=== PATIENT | female | born 1965 | race Two or more races ===

== ENCOUNTER 2017-01-04 21:44 | Emergency (ER) | payer SELFPAY ==
[~2017-01-04] VITALS: Ht 157.5 cm; Wt 90.7 kg
[~2017-01-04 21:44] MED LIST: FLUT9.9S NS; MAGN296S PO; METH-37 PO; ONDA4TAB10 SL; TRAM-29 PO
[2017-01-04 22:01] VITALS: BP 160/89
--- NOTE | 2017-01-04 22:18 | PHYS DOC ---
Past Medical History Past Medical History: Asthma, Hypertension Additional Past Medical Histor: htn "with childbirth" Past Surgical History: No Surgical History, Alcohol Use: None Drug Use: None Adult General Chief Complaint Chief Complaint: SKIN RASH/ABSCESS HPI HPI Patient is a 51 year old female who presents with sharp shooting left mid axillary pain that wraps around to her back to her breast. Patient states she thinks her bra tag has been poking her or spider bit her in this area. There is a small lesion that is not vesicular in nature at the area of maximum pain. Patient denies any cardiac history. Patient denies any fevers or chills. Patient has no other complaints. Pertinent physical exam findings: Tender to palpation of the left chest wall midaxillary with a small lesion possibly a skin tag with maximal tenderness ED course: 2199: EKG, two-view chest x-ray 2229: Patient complained of a headache and wanted pain medication. Patient described 60 mg of Toradol IM. Pertinent results: EKG: NSR 86 no STEMI inverted T waves in anterior leads with no previous EKG to compare to Chest x-ray two-view [facility] ED medical decision making: After reviewing the chart, just complaint, history of present illness, past medical history, physical exam, EKG, chest x-ray I do not believe the patient have an acute MS, PE (PERC neg), and low suspicion for acute thoracic aortic dissection. I believe the patient has left sided chest wall pain that could be early shingles or from a possible spider bite as the patient stated. The patient does not think this is cardiac in nature. Patient does not want to be admitted for further cardiac workup. Patient is stable for discharge. Recommend short-term follow-up PCP in 1-2 days. Additional verbal discharge instructions were provided to the patient and that if symptoms get worse or any new symptoms arise that are worrisome to the patient he is to return to emergency room immediately. Review of Systems Review of Systems Constitutional: Denies fever or chills [] Eyes: Denies change in visual acuity, redness, or eye pain [] HENT: Denies nasal congestion or sore throat [] Respiratory: Denies cough or shortness of breath [] Cardiovascular: Left chest wall pain GI: Denies abdominal pain, nausea, vomiting, bloody stools or diarrhea [] : Denies dysuria or hematuria [] Musculoskeletal: Denies back pain or joint pain [] Integument: Denies rash or skin lesions [] Current Medications Current Medications Current Medications Medications (Trade) Dose Ordered Sig/Grabiel Start Time Stop Time Status Last Admin Dose Admin Ketorolac Tromethamine (Toradol Im) 60 mg 1X ONCE 01/04/17 23:00 01/04/17 23:01 DC 01/04/17 22:37 60 MG Allergies Allergies Allergies Coded Allergies Type Severity Reaction Last Updated Verified No Known Drug Allergies 04/11/14 No Physical Exam Physical Exam Constitutional: Well developed, well nourished, no acute distress, non-toxic appearance. [] HENT: Normocephalic, atraumatic, bilateral external ears normal, oropharynx moist, no oral exudates, nose normal. [] Eyes: PERRLA, EOMI, conjunctiva normal, no discharge. [] Neck: Normal range of motion, no tenderness, supple, no stridor. [] Cardiovascular:Heart rate regular rhythm, no murmur, positive tender to palpation left midaxillary chest wall for small skin tag lesion nonvesicular [] Lungs & Thorax: Bilateral breath sounds clear to auscultation [] Abdomen: Bowel sounds normal, soft, no tenderness, no masses, no pulsatile masses. [] Skin: Warm, dry, no erythema, no rash. [] Back: No tenderness, no CVA tenderness. [] Extremities: No tenderness, no cyanosis, no clubbing, ROM intact, no edema. [] Neurologic: Alert and oriented X 3, normal motor function, normal sensory function, no focal deficits noted. [] Psychologic: Affect normal, judgement normal, mood normal. [] Current Patient Data Vital Signs Vital Signs Date Time Temp Pulse Resp B/P (MAP) Pulse Ox O2 Delivery O2 Flow Rate FiO2 01/04/17 22:01 98.8 94 18 97 Room Air 98.8 EKG EKG 2205:EKG: NSR 86 no STEMI inverted T waves in anterior leads with no previous EKG to compare to[] Radiology/Procedures Radiology/Procedures Two-view chest x-ray NAD [] Course & Med Decision Making Course & Med Decision Making Pertinent Labs and Imaging studies reviewed. (See chart for details) [] Dragon Disclaimer Dragon Disclaimer This electronic medical record was generated, in whole or in part, using a voice recognition dictation system. Departure Departure Impression: Primary Impression: Chest wall pain Additional Impression: Chest pain Disposition: HOME, SELF-CARE Condition: IMPROVED Referrals: NO PCP (PCP) Patient Instructions: Chest Pain (Nonspecific), Chest Wall Pain, [id number] Scripts Ibuprofen (MOTRIN IB) 200 Mg Tablet 800 MG PO Q8HRS for 2 Days, #24 TAB Prov: ANA MORILLO DO 01/04/17 Problem Qualifiers Additional Impression: Chest pain Chest pain type: unspecified Qualified Codes: R07.9 - Chest pain, unspecified ANA MORILLO DO January 04, 2017 22:17
[2017-01-04] MEDS ORDERED: KETOROLAC TROMETHAMINE 60 MG/2 ML INJ. IM ONE (23:00)
[2017-01-04] MEDS ORDERED: IBUP200T43 PO (23:10)
--- NOTE | 2017-01-05 08:53 | RAD ---
Examination: 2 views of the chest. History: History of chest pain Comparison: 08/09/2016 TECHNIQUE: PA and lateral chest radiographs FINDINGS: The cardiomediastinal silhouette is within normal limits. The lungs are clear bilaterally. The costophrenic sulci are clear and well demarcated bilaterally. The osseous structures and soft tissues are unremarkable. IMPRESSION: No radiographic evidence of an acute cardiopulmonary abnormality.
--- NOTE | 2017-01-05 11:23 | EKG ---
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
== END 2017-01-04 23:17 | disposition home or self-care (01) ==
LOC: ER 21:44
DX: R07.89 Other chest pain (principal); I10 Essential (primary) hypertension; J45.909 Unspecified asthma, uncomplicated
CPT/HCPCS: 71020; 93005; 96372; 99284; J1885

== ENCOUNTER 2017-05-26 18:51 | Emergency (ER) | payer SELFPAY ==
[~2017-05-26] VITALS: Ht 157.5 cm; Wt 90.7 kg
[~2017-05-26 18:51] MED LIST changes: +IBUP200T43 PO; -MAGN296S PO; +MAGN296S9 PO; -TRAM-29 PO; +TRAM-48 PO
[2017-05-26] MEDS ORDERED: HYDROcodone/APAP 5/325MG 1 TAB TABLET PO ONE (19:15)
[2017-05-26] MEDS ORDERED: IPRATRPIUM/ALBUTEROL 0.5/2.5MG 3 ML NEBU. NEB ONE (19:15)
[2017-05-26] MEDS ORDERED: ALBUTEROL SULFATE 2.5 MG/3 ML NEBU. NEB ONE (19:15)
[2017-05-26] MEDS ORDERED: predniSONE 20 MG TABLET PO ONE (19:15)
[2017-05-26] MEDS ORDERED: BENZONATATE 100 MG CAPSULE. PO ONE (19:15)
--- NOTE | 2017-05-26 19:30 | PHYS DOC ---
Past Medical History Past Medical History: Asthma, Hypertension Additional Past Medical Histor: htn "with childbirth" Past Surgical History: Alcohol Use: None Drug Use: None Adult General Chief Complaint Chief Complaint: ASTHMA HPI HPI Patient is a 51 year old female presenting to the emergency department for evaluation of cough and shortness of breath that started this morning. History of asthma and says that she used her inhaler but now she is out of it. Cough is productive of yellowish sputum and she says she has some sore throat and sinus congestion. She has required steroids in the past but never intubation or ICU admission. Patient denies any fevers chills nausea vomiting or other systemic symptoms. Patient says that she has a mild headache from all the coughing but denies any chest pain. She is in no obvious distress with normal vital signs. Review of Systems Review of Systems Constitutional: Denies fever or chills [] HENT: + nasal congestion, sore throat [] Respiratory: + cough and shortness of breath [] Cardiovascular: No additional information not addressed in HPI [] Current Medications Current Medications Current Medications Medications (Trade) Dose Ordered Sig/Grabiel Start Time Stop Time Status Last Admin Dose Admin Acetaminophen/ Hydrocodone Bitart (Lortab 5/325) 2 tab 1X ONCE 05/26/17 19:15 05/26/17 19:19 DC 05/26/17 19:23 2 TAB Albuterol Sulfate (Ventolin Neb Soln) 5 mg 1X ONCE 05/26/17 19:15 05/26/17 19:19 DC 05/26/17 19:51 5 MG Albuterol/ Ipratropium (Duoneb) 3 ml 1X ONCE 05/26/17 19:15 05/26/17 19:19 DC 05/26/17 19:51 3 ML Benzonatate (Tessalon Perle) 100 mg 1X ONCE 05/26/17 19:15 05/26/17 19:19 DC 05/26/17 19:23 100 MG Prednisone (Prednisone) 60 mg 1X ONCE 05/26/17 19:15 05/26/17 19:19 DC 05/26/17 19:23 60 MG Allergies Allergies Allergies Coded Allergies Type Severity Reaction Last Updated Verified No Known Drug Allergies 04/11/14 No Physical Exam Physical Exam Constitutional: Well developed, well nourished, no acute distress, non-toxic appearance. [] HENT: Normocephalic, atraumatic, bilateral external ears normal, oropharynx moist, no oral exudates, nose normal. [] Cardiovascular:Heart rate regular rhythm, no murmur [] Lungs & Thorax: Bilateral breath sounds diminished with inspiratory neck trachea wheezing Current Patient Data Vital Signs Vital Signs Date Time Temp Pulse Resp B/P (MAP) Pulse Ox O2 Delivery O2 Flow Rate FiO2 05/26/17 19:51 100 Room Air 05/26/17 19:23 20 05/26/17 19:07 98.3 77 172/96 (121) 98.3 EKG EKG [] Radiology/Procedures Radiology/Procedures Normal heart size normal mediastinum and no obvious free air pneumothorax or opacity Course & Med Decision Making Course & Med Decision Making Patient given duoneb, norco, tessalon, prednisone. Patient's soa resolved and aeration much improved on repeat exam. Patient will be discharged with z-stanton, albuterol, and told to follow with PCP later this week. Patient aware and agreeable with plan for discharge and verbalized understanding of the need for short-term follow-up and strict ED return precautions discussed worsening pain shortness of breath or other general concerns. Dragon Disclaimer Dragon Disclaimer This electronic medical record was generated, in whole or in part, using a voice recognition dictation system. Departure Departure Impression: Primary Impression: Upper respiratory infection Additional Impression: Wheezing Disposition: 01 HOME, SELF-CARE Condition: STABLE Referrals: NO PCP (PCP) Patient Instructions: Asthma, Acute Bronchospasm Scripts Albuterol Sulfate (ALBUTEROL SULFATE CONC NEB SOLN) 2.5 Mg/0.5 Ml Vial.neb 1 VIAL NEB Q4HRS, #60 VIAL 1 Refill Prov: YFN ALEXIS DO 05/26/17 Azithromycin (ZITHROMAX) 250 Mg Tablet 1 PKG PO UD, #6 TAB Prov: YFN ALEXIS DO 05/26/17 Prednisone (PREDNISONE) 50 Mg Tablet 1 TAB PO DAILY, #4 TAB Prov: YFN ALEXIS DO 05/26/17 Albuterol Sulfate (PROAIR HFA INHALER) 8.5 Gm Hfa.aer.ad 1 PUFF INH Q4HRS Y for SHORTNESS OF BREATH, #1 INHALER 0 Refills Prov: YFN ALEXIS DO 10/1/17 Problem Qualifiers Primary Impression: Upper respiratory infection URI type: unspecified URI Qualified Codes: J06.9 - Acute upper respiratory infection, unspecified YFN ALEXIS DO May 26, 2017 19:30
[2017-05-26] MEDS ORDERED: PROAIR HFA8.5 GM INH (20:33)
[2017-05-26] MEDS ORDERED: PRED50TA PO (20:33)
[2017-05-26] MEDS ORDERED: AZIT250T PO (20:33)
[2017-05-26] MEDS ORDERED: ALBU2.5V14 NEB (20:33)
[2017-05-26 20:39] VITALS: BP 189/93
--- NOTE | 2017-05-27 08:23 | RAD ---
Portable chest, 05/26/2017: History: Severe productive cough Comparison is made to a study from 01/04/2017. The heart is at the upper limits of normal in size. The pulmonary vascularity is normal. No pulmonary infiltrates are seen. There is no evidence of pleural fluid. IMPRESSION: No acute cardiopulmonary abnormality is detected.
== END 2017-05-26 20:40 | disposition home or self-care (01) ==
LOC: ER 18:51
DX: J06.9 Acute upper respiratory infection, unspecified (principal); J45.909 Unspecified asthma, uncomplicated; I10 Essential (primary) hypertension
CPT/HCPCS: 71010; 94250; 94640; 99285; J7512; J7613; J7620

== ENCOUNTER 2017-09-11 15:43 | Emergency (ER) | payer SELFPAY ==
[2017-09-11] MEDS: predniSONE 20 MG TABLET PO (16:14)
[2017-09-11] MEDS: IPRATRPIUM/ALBUTEROL 0.5/2.5MG 3 ML NEBU. NEB (16:21)
== END 2017-09-11 16:58 | disposition home or self-care (01) ==
LOC: ER 15:43
DX: J11.1 Influenza due to unidentified influenza virus with other respiratory manifestations (principal); J45.909 Unspecified asthma, uncomplicated; I10 Essential (primary) hypertension
CPT/HCPCS: 94640; 99283-25; J7512; J7620

== ENCOUNTER 2021-02-15 23:44 | Emergency (ER) | payer SELFPAY ==
[~2021-02-15] VITALS: Ht 160 cm; Wt 98.6 kg
[~2021-02-15 23:44] MED LIST changes: +ALBU2.5V14 NEB; +ALBU2.5V8 INH; +AMOX1TAB61 PO; +AZIT250T PO; +AZIT250T6 PO; +BENZ100C PO; -IBUP200T43 PO; +IBUP200T44 PO; +IPRA3AMP29 NEB; +MAGN296S68 PO; -MAGN296S9 PO; +OSEL75CA PO; +PRED20TA PO; +PRED50TA PO
--- NOTE | 2021-02-16 01:39 | PHYS DOC ---
Past Medical History Past Medical History: Asthma, Hypertension Additional Past Medical Histor: htn "with childbirth" (MARLEE HODGES DO) Past Surgical History: (MARLEE HODGES DO) Smoking Status: Never Smoker Alcohol Use: None Drug Use: None (MARLEE HODGES DO) General Adult EDM: Chief Complaint: ASTHMA HPI: HPI: 55-year-old female past medical history of asthma and HTN in , presents to the ED with complaints of nonproductive cough for the past 2 weeks stating " I should be healed," with associated chest tightness and a bad taste in her mouth. Reports this does not feel like her typical asthma. History of a neg ative Covid test 1 week ago that she got prior to traveling. States she saw her primary care physician 1 month ago who tested negative for Covid. Is not vaccinated for Covid. Requests a breathing tx. (MARLEE HODGES DO) Review of Systems: Review of Systems: Constitutional: Denies fever or chills. [] Eyes: Denies change in visual acuity. [] HENT: Denies nasal congestion or sore throat. [] Respiratory: Denies increased work of breathing or hemoptysis. [] Cardiovascular: Denies syncope or edema. [] GI: Denies abdominal pain, nausea, vomiting, : Denies dysuria or vaginal bleeding Musculoskeletal: Denies back pain or joint pain. [] Integument: Denies rash or diaphoresis Neurologic: Denies headache, focal weakness or sensory changes. [] Endocrine: Denies polyuria or polydipsia. [] Lymphatic: Denies swollen glands. [] Psychiatric: Denies depression or anxiety. [] (MARLEE HODGES DO) Heart Score: C/O Chest Pain: Yes HEART Score for Chest Pain: HEART Score for Chest Pain Response (Comments) Value History Slighlty/Non-Suspicious 0 ECG Nonspecific Repolarizatio 1 Age < 45 0 Risk Factors 1 or 2 Risk Factors 1 Troponin < Normal Limit 0 Total 2 Risk Factors: Risk Factors: DM, Current or recent (<one month) smoker, HTN, HLP, family history of CAD, obesity. Risk Scores: Score 0 - 3: 2.5% MACE over next 6 weeks - Discharge Home Score 4 - 6: 20.3% MACE over next 6 weeks - Admit for Clinical Observation Score 7 - 10: 72.7% MACE over next 6 weeks - Early Invasive Strategies (MARLEE HODGES DO) Allergies: Allergies: Allergies Coded Allergies Type Severity Reaction Last Updated Verified No Known Drug Allergies 04/11/14 No (MARLEE HODGES DO) Physical Exam: PE: Constitutional: Well developed, well nourished, no acute distress, non-toxic appearance. HENT: Normocephalic, atraumatic, Eyes: EOMI, conjunctiva normal, no discharge. Neck: Normal range of motion, supple, Cardiovascular: S1/2 present, regular rhythm Lungs & Thorax: Speaking in full sentences, bilateral equal chest rise, no tachypnea or increased work of breathing, mild expiratory wheeze Abdomen: soft, no tenderness, Skin: Warm, dry, no erythema, no rash. [] Back: No tenderness, no CVA tenderness. [] Extremities: No tenderness, no cyanosis, no lower extremity edema Neurologic: Alert and oriented X 3, normal motor function, normal sensory function, no focal deficits noted. [] Psychologic: Affect normal, judgement normal, mood normal. [] (MARLEE HODGES DO) PE: Constitutional: Well developed, well nourished, no acute distress, non-toxic appearance HENT: Normocephalic, atraumatic Eyes: Conjunctiva normal, no discharge Neck: Normal range of motion, supple Lungs & Thorax: No respiratory distress, equal chest rise and fall Skin: Warm, dry, no erythema, no rash Extremities: No tenderness, ROM intact, no edema Neurologic: Alert and oriented X 3, no focal deficits noted Psychologic: Affect normal, judgment normal (JOSE ORNELAS DO) Current Patient Data: Vital Signs: Vital Signs Date Time Temp Pulse Resp B/P (MAP) Pulse Ox O2 Delivery O2 Flow Rate FiO2 02/16/21 00:47 98.2 75 22 149/77 (101) 96 Room Air 98.2 (MARLEE HODGES DO) EKG: EKG: Sinus rhythm 73 bpm, no axis deviation, 3 PVCs in bigemniny, QTC 451, no ST elevations or ST depressions (MARLEE HODGES DO) Radiology/Procedures: Radiology/Procedures: IMAGING REPORT Signed PATIENT: ROHINI WHIPPLE LACCOUNT: [id number] : 1965 LOCATION: ER AGE: 55 SEX: F EXAM STATUS: REG ER ORD. PHYSICIAN: MARLEE HODGES DO REASON: soa PROCEDURE: PORTABLE CHEST 1V EXAMINATION: XR CHEST 1V CLINICAL HISTORY: Shortness of breath EXAM DATE/TIME: 02/16/2021 1:00 AM COMPARISON: 06/06/2018 FINDINGS: Lines, Tubes, and Devices: None. Cardiomediastinal Silhouette: Within normal limits. Lungs and Pleura: No evidence of focal airspace consolidation or pleural effusion. Pulmonary vasculature unremarkable. Bones and Soft Tissues: Degenerative changes of the thoracic spine. IMPRESSION: No evidence of acute cardiopulmonary abnormality or significant interval change. Electronically signed by: Dagoberto De Los Santos DO (02/16/2021 2:03 AM) CITLALLI DICTATED and SIGNED BY: DAGOBERTO DE LOS SANTOS DO DATE: 02/16/21 [id number] (MARLEE HODGES DO) Radiology/Procedures: PROCEDURE: PORTABLE CHEST 1V EXAMINATION: XR CHEST 1V CLINICAL HISTORY: Shortness of breath EXAM DATE/TIME: 02/16/2021 1:00 AM COMPARISON: 06/06/2018 FINDINGS: Lines, Tubes, and Devices: None. Cardiomediastinal Silhouette: Within normal limits. Lungs and Pleura: No evidence of focal airspace consolidation or pleural effusion. Pulmonary vasculature unremarkable. Bones and Soft Tissues: Degenerative changes of the thoracic spine. IMPRESSION: No evidence of acute cardiopulmonary abnormality or significant interval change. Electronically signed by: Dagoberto De Los Santos DO (02/16/2021 2:03 AM) CITLALLI (JOSE ORNELAS DO) Course & Med Decision Making: Course & Med Decision Making Pertinent Labs and Imaging studies reviewed. (See chart for details) Concern for likely asthma exacerbation in the setting of chest tightness which I suspect is related to asthma. Labs were pending. Due to shift change patient was signed out to oncoming physician Dr. Ornelas for further evaluation and disposition. (MARLEE HODGES DO) Course & Med Decision Making 0600- Sign out received from Dr. Hodges for SOA concerning for asthma exacerbation. Steroid and duoneb previously provided. CXR stable. Labs had been ordered but had hydrolyzed and required redraw. CBC pending at time of sign out. Patient seen and evaluated by myself. Reports some return of SOA/wheezing. Additional Duoneb provided. CBC stable. Patient reports interval improvement of symptoms. Patient stable for discharge with outpatient follow-up with PCP. Discussed findings and plan with patient, who acknowledges understanding and agreement. (JOSE ORNELAS DO) Dragon Disclaimer: Dragon Disclaimer: This electronic medical record was generated, in whole or in part, using a voice recognition dictation system. (MARLEE HODGES DO) Departure Departure Impression: Primary Impression: Asthma exacerbation Qualified Codes: J45.21 - Mild intermittent asthma with (acute) exacerbation Disposition: HOME / SELF CARE / HOMELESS Condition: STABLE Referrals: NO PCP (PCP) Patient Instructions: Asthma, Adult, [id number] Additional Instructions: Use humidifier at night while sleeping to decrease allergens in air. Scripts Albuterol Sulfate (PROAIR HFA INHALER) 8.5 Gm Hfa.aer.ad 2 PUFF IH PRN Q4-6HRS PRN for wheezing, #1 INHALER 0 Refills Prov: JOSE ORNELAS DO 02/16/21 Albuterol Sulfate (ALBUTEROL SULFATE CONC NEB SOLN) 2.5 Mg/0.5 Ml Vial.neb 1 VIAL NEB Q6HRS PRN for WHEEZING, #60 VIAL Prov: JOSE ORNELAS DO 02/16/21 Prednisone (PREDNISONE) 20 Mg Tablet 2 TAB PO DAILY for 4 Days, #8 TAB Start this prescription tomorrow, Saturday02/17/21 Prov: JOSE ORNELAS DO 02/16/21 MARLEE HODGES DO Feb 16, 2021 01:38 JOSE ORNELAS DO Feb 16, 2021 08:18
--- NOTE | 2021-02-16 02:06 | RAD ---
EXAMINATION: XR CHEST 1V CLINICAL HISTORY: Shortness of breath EXAM DATE/TIME: 02/16/2021 1:00 AM COMPARISON: 06/06/2018 FINDINGS: Lines, Tubes, and Devices: None. Cardiomediastinal Silhouette: Within normal limits. Lungs and Pleura: No evidence of focal airspace consolidation or pleural effusion. Pulmonary vasculat ure unremarkable. Bones and Soft Tissues: Degenerative changes of the thoracic spine. IMPRESSION: No evidence of acute cardiopulmonary abnormality or significant interval change. Electronically signed by: Dagoberto Strauss DO (02/16/2021 2:03 AM) CITLALLI
[2021-02-16] MEDS ORDERED: IPRATRPIUM/ALBUTEROL 0.5/2.5MG 3 ML NEBU. NEB ONE ×2 (03:00→08:00)
[2021-02-16] MEDS ORDERED: DEXAMETHASONE SOD PHOS 20 MG/5 ML VIAL. IV ONE (03:15)
[2021-02-16 05:45] LABS: CALCIUM 8.9 mg/dL (8.5-10.1); CREATININE 1.3 mg/dL (0.6-1.0); GFR 42.8; POTASSIUM 4.1 mmol/L (3.5-5.1)
[2021-02-16 05:49] LABS: ALBUMIN 3.6 g/dL (3.4-5.0); ALBUMIN/GLOBULIN RATIO 0.8 (1.0-1.7); TOTAL BILIRUBIN 0.2 mg/dL (0.2-1.0); TOTAL PROTEIN 7.9 g/dL (6.4-8.2)
--- NOTE | 2021-02-16 06:17 | EKG ---
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
[2021-02-16 07:42] LABS: BASO % 0 % (0-3); EOS % 0 % (0-3); HEMOGLOBIN 12.1 g/dL (12.0-15.5); LYMPH % 13 % (24-48); MEAN CORPUSCULAR HEMOGLOBIN 31 pg (25-35); MEAN CORPUSCULAR HGB CONC 34 g/dL (31-37); MEAN CORPUSCULAR VOLUME 93 fL (79-100); MONO # 0.1 x10^3/uL (0.0-1.1); MONO % 1 % (0-9); NEUT # 6.7 x10^3/uL (1.8-7.7); NEUT % 85 % (31-73); PLATELET COUNT 249 x10^3/uL (140-400); RED BLOOD COUNT 3.86 x10^6/uL (3.50-5.40); RED CELL DISTRIBUTION WIDTH 13.7 % (11.5-14.5); WHITE BLOOD COUNT 7.9 x10^3/uL (4.0-11.0)
[2021-02-16] MEDS ORDERED: PRED20TA PO (08:17)
[2021-02-16] MEDS ORDERED: ALBU2.5V14 NEB (08:17)
[2021-02-16] MEDS ORDERED: ALBU2.5V8 IH (08:17)
[2021-02-16 08:30] VITALS: BP 127/74
== END 2021-02-16 08:36 | disposition home or self-care (01) ==
LOC: ER 23:44
DX: J45.21 Mild intermittent asthma with (acute) exacerbation (principal); I10 Essential (primary) hypertension
CPT/HCPCS: 36415; 71045; 80053; 83735; 83880; 84484; 85025; 93005; 94640; 96374; 99285; J1100